=== PATIENT | male | born 1940 | race Hispanic/Latino ===

== ENCOUNTER 2019-01-15 13:29 | Emergency (ER) | payer MEDICARE, MEDICAID ==
[2019-01-15] MEDS ORDERED: ISOVUE-370 76%-LOCM 1 ML ONE (14:00)
--- NOTE | 2019-01-15 15:18 | RAD ---
SOFT TISSUE NECK 2 VIEWS: Date: 01/15/19 HISTORY: Foreign body sensation in throat. FINDINGS: The lateral view is somewhat overexposed for good soft tissue evaluation. The visualized epiglottis i s unremarkable. No overt metal or significantly opaque foreign body. No retropharyngeal soft tissue s welling. Cervical spondylosis. IMPRESSION: Somewhat overexposed lateral view for good soft tissue evaluation. No evidence for foreign body. Cerv ical spondylosis. If there is strong clinical concern for foreign body, consider follow-up CT scan for further assessme nt. POS: RRE
[2019-01-15 15:21] LABS: #Eosinphils 0.3 thou/uL (0.0-0.7); #Lymphocytes 2.3 thou/uL (1.20-3.40); #Monocytes 0.5 thou/uL (0.11-0.59); #Neutrophils 3.6 thou/uL (1.40-6.50); %Basophils 0.5 % (0.0-1.0); %Eosinophils 4.3 % (0.0-10.0); %Lymphocytes 33.6 % (21.0-51.0); %Monocytes 7.5 % (0.0-10.0); %Neutrophils 54.2 % (42.0-75.0); Hemoglobin 15.1 g/dL (14.0-18.0); Mean Corpuscular HGB CONC 31.8 g/dL (32.0-36.0); Mean Corpuscular Hemoglobin 28.9 pg (27.0-31.0); Mean Corpuscular Volume 90.7 fL (78.0-98.0); Mean Platelet Volume 6.4 fL (7.4-10.4); Platelet Count 285 thou/uL (130-400); RBC Distribution Width 13.1 % (11.5-14.5); Red Blood Cell (RBC) Count 5.23 mill/uL (4.70-6.10); White Blood Cell (WBC) Count 6.7 thou/uL (4.8-10.8)
[2019-01-15 15:39] LABS: ALT (SGPT) 10 U/L (8-55); AST (SGOT) 15 U/L (5-34); Albumin 4.4 g/dL (3.4-4.8); Alkaline Phosphatase 57 U/L (40-150); Anion Gap 13 mmol/L (10-20); BUN (Urea Nitrogen) 15 mg/dL (8.4-25.7); Bilirubin, Total 0.9 mg/dL (0.2-1.2); CK (CPK) 57 U/L (30-200); Calc. Creatinine Clearance 0 mL/min (70-130); Calcium 9.5 mg/dL (7.8-10.44); Carbon Dioxide 25 mmol/L (23-31); Chloride 100 mmol/L (98-107); Estimated GFR-MDRD 88; Globulin 3.6 g/dL (2.4-3.5); Glucose 97 mg/dL (83-110); Potassium 3.9 mmol/L (3.5-5.1); Sodium 134 mmol/L (136-145)
--- NOTE | 2019-01-15 15:43 | RAD ---
RADIOGRAPH CHEST 1 VIEW: DATE: 01/15/2019 HISTORY: 78-year-old male with chest pain FINDINGS: The thoracic aorta is tortuous and ectatic. There is no evidence of airspace density, pulmonary edema , or pneumothorax. The lateral costophrenic angles are not effaced. No cardiomegaly. IMPRESSION: 1) No acute pulmonary findings. 2) ectasia of thoracic aorta.
--- NOTE | 2019-01-15 17:02 | CT ---
CT neck soft tissues with contrast: DATE: 01/15/2019 HISTORY: 78-year-old male with globus pharyngis, dysphagia and weight loss. COMPARISON: None available FINDINGS: Moderate DJD of bilateral TMJs, left worse than right. High-grade degenerative disc disease at C4-5 a nd C5-6 (But no large osteophytes that encroach upon the larynx or hypopharynx). High-grade facet DJD at several levels, worst on the left at C3-4 (severe). Prominence of lymphoid tissue in the phary ngeal mucosal space of the oropharynx, asymmetrically greatest at the right lateral aspect of the lingual tonsil extending into and effacing the right glossopharyngeal sulcus (axial image 38 of 129, series 2). Medialized, tortuous courses of the bilateral internal carotid arteries at the upper cervical level. Both calcified and noncalcified atheromatous plaque at the proximal internal carotid arteries bilaterally. Unremarkable larynx. At the T1 level, posterior to the lower pole of the right lobe of the thyroid gland, there is a 1.5 x 1.5 x 1 cm soft tissue density nodule slightly to t he right of the trachea. This abuts the anterior superior surface of a right air-filled cavity that measures approximately 1 x 0.5 x 1.5 cm, which could be arising either from the right side of the eso phagus oral right posterior aspect of the trachea. No other potential cervical lymphadenopathy. The retropharyngeal, perivertebral, posterior cervical, parapharyngeal, bee tender, parotid, and submandi bular, spaces, demonstrate no major pathology. IMPRESSION: 1. Nonspecific fullness at the lateral aspect of the right lingual tonsil effacing the right glossoph aryngeal sulcus. Recommend otolaryngology consultation for direct visualization to rule out malignant neoplasm. 2. A 1.5 cm right paratracheal soft tissue density nodule. Parathyroid adenoma versus enlarged lymph node. Recommend correlation with serum PTH and serum calcium levels. 3. That soft tissue density nodule abuts an air-filled diverticulum, either arising from the right si de of the trachea or right side of the esophagus at that level. 4. Cervical spondylosis. 5. 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 6. Atherosclerosis of bilateral proximal internal carotid arteries..
== END 2019-01-15 18:30 | disposition home or self-care (01) ==
LOC: ERS 13:29
DX: G52.3 Disorders of hypoglossal nerve (principal)
CPT/HCPCS: 36415; 70360; 70491; 71045; 80053; 82550; 85025; Q9966

== ENCOUNTER 2019-01-16 17:52 | Emergency (ER) | payer MEDICARE, MEDICAID | END 2019-01-16 21:55 | disposition home or self-care (01) | LOC: ERS 17:52 | DX: K14.9 Disease of tongue, unspecified (principal) | CPT/HCPCS: 99283 ==